=== PATIENT | female | born 1975 | race Caucasian/White ===

== ENCOUNTER 2019-12-09 08:44 | Emergency (ER) | payer MEDICAID ==
[~2019-12-09] VITALS: Ht 154.9 cm; Wt 106.6 kg
[2019-12-09 08:48] VITALS: BP 150/80
[2019-12-09 10:51] LABS: BASOPHILS # (AUTO) 0.1 K/uL (0.00-0.22); BASOPHILS % (AUTO) 0.6 % (0.0-2.0); EOSINOPHILS # (AUTO) 1.1 K/uL (0-0.4); EOSINOPHILS % (AUTO) 7.9 % (0.0-4.0); HEMATOCRIT 31.1 % (36-48); LYMPHOCYTES # (AUTO) 2.6 K/uL (2.5-16.5); LYMPHOCYTES % (AUTO) 19.6 % (20.5-51.1); MEAN CORPUSCULAR HEMOGLOBIN 25 pg (27-31); MEAN CORPUSCULAR HGB CONC 32 g/dL (33-37); MEAN CORPUSCULAR VOLUME 78.4 fL (80-94); MONOCYTES # (AUTO) 0.6 K/uL (0.8-1.0); MONOCYTES % (AUTO) 4.4 % (1.7-9.3); NEUTROPHILS # (AUTO) 9.1 K/uL (1.8-7.7); NEUTROPHILS % (AUTO) 67.5 % (42.2-75.2); PLATELET COUNT (AUTO) 514 K/uL (140-450); RED BLOOD CELL COUNT(AUTO) 3.96 MIL/uL (4.20-5.40); RED CELL DISTRIBUTION WIDTH 14.1 % (11.6-13.7); WHITE BLOOD COUNT (AUTO) 13.5 K/uL (4.8-10.8)
[2019-12-09 10:53] LABS: APPEARANCE,URINE CLOUDY (CLEAR); BILIRUBIN,URINE NEGATIVE (NEGATIVE); BLOOD, URINE 3+ (NEGATIVE); COLOR,URINE RED (YELLOW); LEUKOCYTE ESTERASE ,URINE 1+ (NEGATIVE); NITRITE, URINE POSITIVE (NEGATIVE); PH,URINE 6.5 (5.0-9.0); UGLUCOSE NEGATIVE (NEGATIVE)
[2019-12-09 11:03] LABS: RBC,URINE TOO NUMEROUS TO COUN /HPF (0-5); WBC,URINE 0-5 /HPF (0-5)
[2019-12-09 11:06] LABS: PROTHROMBIN TIME 9.9 secs (10.8-13.4)
[2019-12-09] MEDS ORDERED: IBUPROFEN 600 MG TAB PO ONE (13:15)
[2019-12-09 13:22] VITALS: BP 113/71
== END 2019-12-09 13:23 | disposition home or self-care (01) ==
LOC: MED 08:44
DX: N93.9 Abnormal uterine and vaginal bleeding, unspecified (principal); I10 Essential (primary) hypertension; E07.9 Disorder of thyroid, unspecified
CPT/HCPCS: 36415; 76830; 81001; 81025; 84702; 85025; 85610; 85730; 86886; 86900; 86901; 87086; 99284; Q0092

== ENCOUNTER 2020-12-13 10:36 | Emergency (ER) | payer MEDICAID ==
[~2020-12-13] VITALS: Ht 162.6 cm; Wt 113.4 kg
[2020-12-13 10:42] VITALS: BP 132/93
--- NOTE | 2020-12-13 10:45 | NUR ---
45 Y/O F PT C/C 06/28 CHRONIC ABD PAIN R/T UMBLICAL HERNIA THAT IS EXACERBATING HER BACK PAIN. PT REPORTS NAUSEA BUT DENIES VOMITTING, RASH AND CHILLS. TTP IN ALL QUDARANTS. NORMOACTIVE BOWEL SOUNDS PRESENT. NKA
--- NOTE | 2020-12-13 11:17 | NUR ---
PROVIDER AT BEDSIDE EVALUATING PT.
[2020-12-13] MEDS ORDERED: MORPHINE SULFATE 4 MG/ML SYR IVP ONE (11:20)
[2020-12-13] MEDS ORDERED: ONDANSETRON 4 MG/2 ML VIAL IVP ONE (11:20)
--- NOTE | 2020-12-13 11:25 | NUR ---
LABDS HANDED TO ADMISSIONS NURSE AT BEDSIDE.
[2020-12-13 11:36] LABS: BASOPHILS # (AUTO) 0.1 K/uL (0.00-0.22); BASOPHILS % (AUTO) 0.7 % (0.0-2.0); EOSINOPHILS # (AUTO) 0.9 K/uL (0-0.4); EOSINOPHILS % (AUTO) 5.2 % (0.0-4.0); HEMATOCRIT 37.4 % (36-48); HEMOGLOBIN 12.1 g/dL (12.0-16.0); LYMPHOCYTES # (AUTO) 4.7 K/uL (2.5-16.5); LYMPHOCYTES % (AUTO) 26.4 % (20.5-51.1); MEAN CORPUSCULAR HEMOGLOBIN 27 pg (27-31); MEAN CORPUSCULAR HGB CONC 32 g/dL (33-37); MEAN CORPUSCULAR VOLUME 82.3 fL (80-94); MONOCYTES % (AUTO) 5.9 % (1.7-9.3); NEUTROPHILS % (AUTO) 61.8 % (42.2-75.2); PLATELET COUNT (AUTO) 575 K/uL (140-450); RED BLOOD CELL COUNT(AUTO) 4.55 MIL/uL (4.20-5.40); RED CELL DISTRIBUTION WIDTH 13.3 % (11.6-13.7); WHITE BLOOD COUNT (AUTO) 17.7 K/uL (4.8-10.8)
[2020-12-13 11:37] LABS: APPEARANCE,URINE CLEAR (CLEAR); BILIRUBIN,URINE NEGATIVE (NEGATIVE); BLOOD, URINE NEGATIVE (NEGATIVE); COLOR,URINE YELLOW (YELLOW); LEUKOCYTE ESTERASE ,URINE NEGATIVE (NEGATIVE); NITRITE, URINE NEGATIVE (NEGATIVE); UGLUCOSE NEGATIVE (NEGATIVE)
--- NOTE | 2020-12-13 11:43 | NUR ---
PT WHEELCHAIRED TO CT.
[2020-12-13 11:51] LABS: ALBUMIN 3.1 g/dL (3.4-5.0); ANION GAP 13.2 (8-16); CARBON DIOXIDE 27.6 mmol/L (21-32); CREATININE 0.8 mg/dL (0.6-1.3); POTASSIUM 3.8 mmol/L (3.5-5.1); TOTAL BILIRUBIN 0.2 mg/dL (0.0-1.0)
--- NOTE | 2020-12-13 11:53 | NUR ---
PT RETURED FROM CT IN LOWEST LOCKED BED, X1 RAIL, ON CARDIAC AND PULSE OX MONITORING.
--- NOTE | 2020-12-13 13:01 | NUR ---
PT RE-ASSESSED AND STATES PAIN HAS IMPROVED AND PT IS FEELING MUCH BETTER AT THIS TIME. DR. NELSON MADE AWARE. PLAN TO DISCHARGE PATIENT.
[2020-12-13] MEDS ORDERED: BEN10 PO (13:07)
[2020-12-13 13:17] VITALS: BP 116/64
--- NOTE | 2020-12-13 13:17 | NUR ---
Patient discharged with v/s stable. Written and verbal after care instructions given and explained. Patient alert, oriented and verbalized understanding of instructions. Ambulatory with steady gait. All questions addressed prior to discharge. ID band removed. Patient advised to follow up with PMD. Rx of BENTYL given. Patient educated on indication of medication including possible reaction and side effects. Opportunity to ask questions provided and answered.
== END 2020-12-13 13:17 | disposition home or self-care (01) ==
LOC: MED 10:36
DX: R10.9 Unspecified abdominal pain (principal); G89.29 Other chronic pain; M54.5 Low back pain; I10 Essential (primary) hypertension; E07.9 Disorder of thyroid, unspecified
CPT/HCPCS: 36415; 74176; 80053; 81003; 81025; 83690; 85025; 96374; 96375; 99284; J2270; J2405